=== PATIENT | male | born 1980 | race Caucasian/White ===

== ENCOUNTER 2016-12-20 17:17 | Emergency (ER) | payer SELFPAY ==
[~2016-12-20 17:17] MED LIST: DICLOFENAC POTA50 M1 PO; FISH OIL 1,0001 EA10 PO; FLEXERIL10 MG PO; LAMICTAL200 M2 PO; LORTAB 5/500 TA1 TAB PO; NORCO 5-325 TA1 EACH PO; NORCO 5/325 TAB1 TAB PO; REQUIP2 M1 PO; VENTOLIN HFA18 G2 PO; XANAX1 M1 PO; ZITHROMAX250 M1 PO
== END 2016-12-20 18:46 | disposition left against medical advice (07) ==
LOC: EDMED 17:17
DX: R42 Dizziness and giddiness (principal); Z53.21 Procedure and treatment not carried out due to patient leaving prior to being seen by health care provider

== ENCOUNTER 2016-12-22 19:13 | Emergency (ER) | payer SELFPAY ==
[2016-12-22] MEDS ORDERED: [UNRECOGNIZED DRUG - REMARK] PO (21:11)
[2016-12-22] MEDS ORDERED: MELOXICAM15 M1 PO (21:35)
== END 2016-12-22 21:50 ==
LOC: EDMED 19:13
DX: S86.812A Strain of other muscle(s) and tendon(s) at lower leg level, left leg, initial encounter (principal); I10 Essential (primary) hypertension; F41.9 Anxiety disorder, unspecified; X50.1XXA Overexertion from prolonged static or awkward postures, initial encounter; Y93.89 Activity, other specified; Y99.8 Other external cause status